=== PATIENT | male | born 1960 | race Caucasian/White ===

== ENCOUNTER 2016-09-24 11:47 | Inpatient (IN) | payer MEDICARE, MEDICAID ==
[~2016-09-24 11:47] MED LIST: ABILIFY10 MG; ABILIFY15 MG; ABILIFY15 MG PO; ABILIFY20 MG; ABILIFY30 MG; ABILIFY30 MG PO; ACETAMINOPHEN; ACETAMINOPHEN325 M2 PO; ACIDOPHILUS CAP1 TAB PO; ACIDOPHILUS1 CAP PO; ACIDOPHILUS1 EAC3 PO; ACIDOPHILUS1 EAC6 PO; ACTICOAT; ACTOS15 MG; ADULT ASPIRIN81 MG; ADULT LOW DOSE81 M1 PO; ADVAIR; ADVAIR 2501 DISK W/D; ADVAIR 2501 DISK W/D IH; ALAVERT10 MG; ALBUTEROL SULF8.5 GM IH; ALBUTEROL0.83 MG/ML INH; ALEVE220 MG PO; ALLER-CHLOR4 M1 PO; ALLERGY RELIEF10 M9 PO; AMBIEN CR12.5 MG/BO; AMBIEN10 M1 PO; AMBIEN10 MG; AMITRIPTYLINE H50 MG; AMOXICILLIN500 MG PO; ANBESOL MT; ANTACID500 MG; ANTIVERT25 MG; APAP; ARGIMENT POWDE1 EACH PO; ARTIFICIAL TEA1 EAC1 OP; ARTIFICIAL TEAR15 M OP; ARTIFICIAL TEAR15 M8 EACH EYE; ASACOL HD800 MG PO; ASACOL400 MG; ASACOL400 MG PO; ASPIR 8181 MG PO; ASPIR-LOW81 MG; ASPIRIN ENTERI325 MG PO; ASPIRIN325 MG PO; ASPIRIN81 M1 CH; AUGMENTIN 875-1 EAC2 PO; AUGMENTIN 875-11 TAB; AVODART0.5 MG; AYR SALINE NA14.1 GM; AZULFIDINE500 MG; AZULFIDINE500 MG PO; BABY ASPIRIN81 MG; BACLOFEN10 M1 PO; BACTRIM DS TABL1 TAB; BELSOMRA15 MG PO; BENEPROTEIN PO; BENTYL10 M1 PO; BENTYL10 MG PO; BENTYL20 M1 PO; BENTYL20 MG; BENTYL20 MG PO; BENZONATATE200 MG; BENZTROPINE MESY1 M1 PO; BIOTENE MOIST44.3 ML MM; BISAC-EVAC10 MG RC; BISAC-EVAC10 MG/SUPP RC; BISCOLAX10 MG RC; BOTTL PO; BROVANA15 MCG/22 INH; BUPROPION XL300 M1 PO; BUSPAR10 MG; BUSPAR15 MG; BUSPAR15 MG PO; BUSPAR30 MG PO; BUSPAR5 MG; BUSPIRONE HCL10 M2 PO; BUSPIRONE HCL30 MG PO; CAFFEINE; CALAN80 MG PO; CALCIUM 500 +1 EAC1 PO; CALCIUM 600 +1 EAC2 PO; CANASA1000 MG/SU RC; CARAFATE1 G PO; CARAFATE1 GM/10 M1 PO; CARDIZEM CD120 MG; CARDIZEM60 MG; CARVEDILOL12.5 M1 PO; CEFTRIAXON1000 MG/VI IM; CENTRUM SILVER1 TA; CERTAGEN1 TAB PO; CERTAVITE-ANTI1 EACH PO; CETIRIZINE HCL10 M1 PO; CHLORHEX GLU PO; CITRUCEL500 M1 PO; CLARITIN10 MG; CLONAZEPAM0.5 M1 PO; CLONAZEPAM0.5 MG; CLONAZEPAM0.5 MG PO; CLONAZEPAM1 M1 PO; CLONAZEPAM1 MG; CLONAZEPAM1 MG PO; CLONAZEPAM2 MG; COLACE100 MG PO; COLAZAL750 M1 PO; COMBIVENT INH14.7 GM; CPAP; CYCLOBENZAPRINE10 M1 PO; CYCLOBENZAPRINE10 MG PO; CYMBALTA60 MG PO; DEEP SEA45 M1; DEEP SEA45 M1 NS; DELZICOL; DELZICOL400 MG PO; DEMADEX20 MG PO; DEPAKOTE D250 MG/TA1 PO; DEPAKOTE ER250 M1 PO; DEPAKOTE ER250 MG; DEPAKOTE ER500 M1 PO; DEPAKOTE250 MG PO; DEPAKOTE500 MG; DESYREL100 MG/TAB PO; DESYREL150 MG PO; DETROL LA4 MG; DIAZEPAM5 M2 PO; DICYCLOMINE HCL20 MG; DICYCLOMINE HCL20 MG PO; DILACOR; DILTIAZEM ER120 MG; DITROPAN XL15 MG PO; DITROPAN XL5 M1 PO; DITROPAN5 M1 PO; DITROPAN5 MG; DITROPAN5 MG PO; DIVALPROEX SOD250 M3 PO; DIVALPROEX SOD500 M4 PO; DOCUSATE CALCI100 MG PO; DOCUSATE SODIU100 M2 PO; DOCUSATE SODIU100 MG PO; DONNATAL TABL16.2 MG; DUONEB 2.5-0.5 M3 ML IH; EFFEXOR XR150 MG; EFFEXOR XR150 MG PO; EFFEXOR XR37.5 MG PO; EFFEXOR XR75 M1 PO; EFFEXOR75 MG; EFFEXOR75 MG PO; ELESTAT5 ML OP; ENABLEX15 MG PO; ENABLEX7.5 MG PO; ENEMA READY-TO133 M1 PR; EQL FISH OIL 1,1 CA1 PO; ESKALITH CR450 MG PO; EXPECTORANT200 M1 PO; FANAPT10 MG PO; FANAPT4 MG PO; FIORICET1 TA1 PO; FISH OIL 1,0001 CA PO; FISH OIL 1,0001 CA1 PO; FLEXERIL10 MG PO; FLOMAX0.4 M1 PO; FLOMAX0.4 MG; FLOMAX0.4 MG PO; FLONASE ALLERG9.9 ML NS; FLONASE16 G1; FLONASE16 G2 NS; FLORINEF ACETA0.1 MG; FLUDRICORTISON0.1 MG PO; FLUDROCORTISON0.1 M1 PO; FLUDROCORTISON0.1 MG PO; FLUTICASONE P15.8 ML; FORADIL INH; FUROSEMIDE40 MG; FUROSEMIDE80 M2 PO; GABAPENTIN100 M1 PO; GABAPENTIN400 M3 PO; GABAPENTIN600 M2 PO; GEODON80 MG; GLIPIZIDE5 MG; GLIPIZIDE5 MG PO; GLUCAGEN1 MG/1 ML IM; GUAIFENESIN ER600 MG PO; GUAIFENESIN200 M3 PO; H; H PO; HALFPRIN162 MG; HUMALOG100 UNITS/ SC; HYDROCODON-ACE1 EA17 PO; HYDROCODON-ACE1 EAC7 PO; HYDROXYZINE HCL25 M1 PO; IMDUR30 MG PO; IMDUR60 MG; IMDUR60 MG PO; IMIPRAMINE HCL25 MG; IMIPRAMINE HCL50 MG; IMODIUM2 MG; INDERAL LA160 MG PO; INDERAL60 MG PO; INDERAL80 MG PO; INVEGA PO; INVEGA1.5 MG PO; INVEGA3 MG/BOTTL PO; INVEGA6 MG/BOTTL; INVEGA6 MG/BOTTL PO; IPRAT-ALBUT 0.5-3 ML INH; IPRATROPIU0.2 MG/1 M INH; IPRATROPIU0.2 MG/1 M NEB; IPRATROPIUM BRO15 ML NS; IRON325 M1 PO; ISORDIL30 MG PO; ISOSORBIDE DINI20 M1 PO; ISOSORBIDE DINI40 M1 PO; ISOSORBIDE MONO60 MG; JUVEN PACKET1 EACH PO; K-DUR20 ME1 PO; K-DUR20 MEQ; K-DUR20 MEQ PO; K-DUR20 MEQ/TA1 NG; KLONOPIN1 MG; KLONOPIN1 MG PO; KLONOPIN2 MG; KLONOPIN2 MG PO; KLOR-CON 1010 MEQ; KLOR-CON M20 MEQ/TAB PO; KLOR-CON M2020 MEQ; LABETALOL HCL100 MG PO; LAMICTAL ODT25 MG; LAMICTAL ODT50 MG; LAMICTAL150 MG PO; LAMICTAL200 MG; LAMICTAL200 MG PO; LAMICTAL25 MG; LAMOTRIGINE150 MG PO; LAMOTRIGINE200 MG PO; LASIX20 MG PO; LASIX40 M1 PO; LASIX40 MG; LASIX40 MG PO; LASIX80 MG PO; LATUDA40 MG PO; LATUDA80 MG PO; LEVAQUIN500 MG PO; LEVAQUIN750 M1 PO; LEVAQUIN750 MG; LEVBID0.375 MG; LEVEMIR FL100 UNIT/2 SC; LEVEMIR100 UNITS/ SC; LEVOTHROID150 MC1 PO; LEVOTHROID175 MCG; LEVOTHROID200 MCG PO; LEVOTHROID25 MCG PO; LEVOTHROID300 MCG; LEVOTHROID300 MCG PO; LEVOTHROID75 MCG; LEVOTHROID75 MCG PO; LEVOTHYROXINE PO; LEVOTHYROXINE137 MC1 PO; LEVOTHYROXINE200 MC4 PO; LEVOTHYROXINE200 MCG; LEVOTHYROXINE200 MCG PO; LEVOTHYROXINE300 MCG PO; LEVOTHYROXINE75 MC3 PO; LEVOXYL150 MCG; LEVOXYL300 MCG; LEXAPRO20 M1 PO; LIALDA1.2 G PO; LIALDA1.2 GM/TAB PO; LIDOCAINE; LIPITOR10 M1 PO; LISINOPRIL10 MG; LISINOPRIL2.5 MG; LISINOPRIL5 MG; LITHIUM CARBON300 M; LITHIUM CARBON300 MG; LITHIUM CARBON450 MG PO; LITHIUM CARBON600 MG; LOPERAMIDE2 M2 PO; LOPRESSOR25 MG/TA1 PO; LORATADINE10 MG; LORATADINE10 MG PO; LORATIDINE 10 MG; LOVENOX40 MG/0.4 SQ; LOW DOSE ASPIRI81 M3 PO; LUBRICANT EYE OP; LUNESTA3 MG; LUVOX CR150 MG; MAGOX400 MG PO; MECLIZINE HCL25 MG PO; MELATONIN3 MG PO; MELATONIN5 M1 PO; METAMUCIL1 PKT; METFORMIN HCL1000 M2 PO; METFORMIN HCL500; METOPROLOL TART25 MG PO; MILK OF MA400 MG/5 M; MILK OF MAGNESIA PO; MIRALAX12 EA; MIRALAX12 EA PO; MIRALAX17 GM PO; MIRTAZAPINE30 MG PO; MIRTAZAPINE45 M1 PO; MIRTAZAPINE45 MG PO; MOBIC15 MG PO; MULTI VITAMIN1 EAC2 PO; MULTIVITAMIN1 TAB PO; MUPIROCIN22 G2 TP; NASONEX17 GM NS; NEURONTIN100 M1 PO; NEURONTIN300 M1 PO; NEURONTIN300 MG; NICODERM C; NITROQUICK0.4 MG; NORCO 5/325 TAB1 TAB; NORCO 5/3251 TAB PO; NORCO 7.5/325 T1 TAB; NORVASC5 MG; O2; OMEPRAZOLE20 MG; OMEPRAZOLE40 M2 PO; OMNARIS12.5 GM NS; OMNICEF300 MG PO; ONDANSETRON HCL4 M2 PO; ONDANSETRON ODT4 M1 PO; ORGAN-I NR200 MG PO; OS CAL PO; OXCARBAZEPINE300 M1 PO; OXYBUTYNIN CHLO10 MG PO; OXYBUTYNIN CHLOR5 M2 PO; OXYBUTYNIN CHLOR5 MG; OXYGEN; OYSTER CALCIUM PO; PAMINE2.5 MG PO; PANTOPRAZOLE SO40 M3 PO; PANTOPRAZOLE SO40 MG PO; PERIDEX118 ML SSP; PHENASEPTIC177 ML MT; PHENERGAN25 M1 PO; PLAVIX75 MG; PLAVIX75 MG PO; POTASSIUM CHLO10 MEQ; POTASSIUM CHLO20 ME3 PO; PRAVACHOL40 MG PO; PREDNISONE10 M1 PO; PREDNISONE10 MG PO; PRILOSEC OTC20 MG; PRILOSEC40 MG PO; PROMETH-CODEIN 65 ML PO; PROMETHAZINE25 MG; PROMETHAZINE25 MG PO; PROPRANOLOL HCL60 M2 PO; PROTEIN POWDER; PROTONIX40 M1 PO; PROTONIX40 MG; PROTONIX40 MG PO; PROVENTIL HFA6.7 GM IH; PULMICORT0.5 MG/22 INH; Q TUSSIN PO; QUESTRAN PACK4 G/PKT PO; REGULOID POWDE; REMERON15 MG; REMERON30 MG; REMERON45 MG PO; REQUIP1 MG PO; REQUIP2 M1 PO; RESTASIS1 EACH OP; RESTASIS32 EA OP; RESTORIL15 MG; RESTORIL30 MG PO; RISPERDAL3 MG; ROBAFEN DM COU118 M1 PO; ROBAFEN100 MG/52 PO; ROPINIROLE HCL2 M2 PO; ROZEREM8 MG; RULOX SUSPENSI355 M2 PO; SAPHRIS10 M1 SL; SAPHRIS10 MG SL; SAVELLA25 MG PO; SAVELLA50 MG PO; SENNA S TABLET1 TAB; SENNA-S TABLET1 TAB; SENOKOT-S TABLE1 TAB; SEREVENT DISKU50 MCG INH; SEROQUEL X300 MG/TAB PO; SEROQUEL XR200 MG; SEROQUEL XR300 MG; SEROQUEL XR300 MG PO; SEROQUEL XR400 M1 PO; SEROQUEL XR400 M2 PO; SEROQUEL XR400 MG; SEROQUEL XR400 MG PO; SEROQUEL100 MG PO; SEROQUEL200 M2 PO; SEROQUEL200 MG; SEROQUEL25 MG; SEROQUEL300 MG; SEROQUEL300 MG PO; SEROQUEL400 MG PO; SEROQUEL50 MG; SEROQUEL50 MG PO; SIMVASTATIN10 MG PO; SINGULAIR10 MG; SONATA10 MG; SPIRIVA18 MCG IH; SUDOGEST PO; SULFADIAZINE500 MG; SULFASALAZINE500 MG; SULFASALAZINE500 MG PO; SYMBICORT 160-1 PUFF INH; SYNTHROID125 MCG PO; SYNTHROID150 MCG; SYSTANE 0.3-0.1 EACH OP; SYSTANE 0.3-0.4%1 EA OP; SYSTANE BALANCE10 M1 EACH EYE; SYSTANE BALANCE10 M1 OP; TAB-A-VITE W/IR1 TAB PO; TEMAZEPAM15 MG; TEMAZEPAM30 MG; TEMAZEPAM30 MG PO; TENORMIN50 MG; TETRACYCLINE PO; THERA M1 TAB; TOFRANIL50 MG; TOPAMAX100 MG; TOPROL XL25 MG; TOPROL XL25 MG PO; TOPROL XL50 MG; TYLENOL325 M1 PO; TYLENOL325 MG; TYLENOL325 MG PO; UNICOMPLEX-M1 TAB PO; VALIUM5 M1 PO; VANCOCIN HCL250 M1 PO; VANCOMYCIN HCL1 G1 IV; VENLAFAXINE HC150 M1 PO; VENLAFAXINE HC150 M3 PO; VENTOLIN HFA18 GM IH; VERAPAMIL HCL PO; VERAPAMIL HCL120 MG PO; VERAPAMIL HCL240 M PO; VERAPAMIL HCL80 MG; VERAPAMIL HCL80 MG PO; VERAPAMIL PO; VESICARE5 MG PO; VIBRYD; VIBRYD PO; VIIBRYD40 MG PO; VISTARIL50 MG; VITAMIN B-121000 MC2 PO; VITAMIN B121000 MCG PO; VITAMIN C PO; VITAMIN C500 M3 PO; VITAMIN D 22000 UNIT PO; VITAMIN D1000 UNI1 PO; VITAMIN D1000 UNIT PO; VYTORIN 10/40 T1 TAB; XYLOCAINE 1% IJ; ZETIA10 MG; ZINC SULFATE220 MG PO; ZINC30 MG PO; ZOCOR40 MG; ZOCOR40 MG PO; ZYPREXA20 M1 PO; ZYRTEC10 M1 PO; ZYRTEC10 MG PO; ZYRTEC1010 PO; [UNRECOGNIZED DRUG - OTHER]; [UNRECOGNIZED DRUG - OTHER]; [UNRECOGNIZED DRUG - OTHER]; [UNRECOGNIZED DRUG - OTHER]; [UNRECOGNIZED DRUG - OTHER]; [UNRECOGNIZED DRUG - OTHER]; [UNRECOGNIZED DRUG - OTHER] EACH EYE; [UNRECOGNIZED DRUG - OTHER] IJ; [UNRECOGNIZED DRUG - OTHER] IM; [UNRECOGNIZED DRUG - OTHER] PO; [UNRECOGNIZED DRUG - OTHER] PO; [UNRECOGNIZED DRUG - OTHER] PO; [UNRECOGNIZED DRUG - OTHER] PO; [UNRECOGNIZED DRUG - OTHER] PO; [UNRECOGNIZED DRUG - OTHER] PO
[2016-09-24] MEDS ORDERED: ACIDOPHILUS PR1 EAC1 PO (12:30)
[2016-09-24] MEDS ORDERED: ASPIRIN81 M1 PO (12:31)
[2016-09-24] MEDS ORDERED: LIPITOR10 M1 PO (12:31)
[2016-09-24] MEDS ORDERED: APRISO0.375 G1 PO (12:31)
[2016-09-24] MEDS ORDERED: BUSPIRONE HCL15 M2 PO (12:33)
[2016-09-24] MEDS ORDERED: ZITHROMAX250 M1 PO (12:33)
[2016-09-24] MEDS ORDERED: BACLOFEN10 M1 PO (12:33)
[2016-09-24] MEDS ORDERED: COREG12.5 M1 PO (12:34)
[2016-09-24] MEDS ORDERED: ZYRTEC10 M7 PO (12:34)
[2016-09-24] MEDS ORDERED: PERIDEX118 ML SSP (12:35)
[2016-09-24] MEDS ORDERED: CITRUCEL500 M1 PO (12:35)
[2016-09-24] MEDS ORDERED: DEEP SEA45 M1 (12:37)
[2016-09-24] MEDS ORDERED: VALIUM5 M1 PO (12:38)
[2016-09-24] MEDS ORDERED: VALIUM10 M1 PO (12:38)
[2016-09-24] MEDS ORDERED: DEPAKOTE ER500 M1 PO ×2 (12:39→13:08)
[2016-09-24] MEDS ORDERED: LASIX80 M1 PO (12:41)
[2016-09-24] MEDS ORDERED: NEURONTIN300 M1 PO (12:42)
[2016-09-24] MEDS ORDERED: GUAIFENESIN200 M3 PO (12:42)
[2016-09-24] MEDS ORDERED: ISOSORBIDE DINI20 M1 PO (12:43)
[2016-09-24] MEDS ORDERED: SYNTHROID0.2 MG/TAB PO (12:44)
[2016-09-24] MEDS ORDERED: SYNTHROID25 MC1 PO (12:44)
[2016-09-24] MEDS ORDERED: TRILEPTAL300 M2 PO (12:45)
[2016-09-24] MEDS ORDERED: ONCE DAILY1 EACH PO (12:45)
[2016-09-24] MEDS ORDERED: NASONEX17 G1 (12:45)
[2016-09-24] MEDS ORDERED: GLUCOPHAGE1000 M1 PO (12:45)
[2016-09-24] MEDS ORDERED: PROTONIX40 M2 PO (12:46)
[2016-09-24] MEDS ORDERED: SEROQUEL100 M2 PO (12:47)
[2016-09-24] MEDS ORDERED: POTASSIUM CHLO20 ME3 PO (12:47)
[2016-09-24] MEDS ORDERED: SEROQUEL400 M1 PO (12:48)
[2016-09-24] MEDS ORDERED: REFRESH LIQUIGE15 ML EACH EYE (12:49)
[2016-09-24] MEDS ORDERED: RESTORIL15 M1 PO (12:50)
[2016-09-24] MEDS ORDERED: EFFEXOR XR75 M1 PO (12:50)
[2016-09-24] MEDS ORDERED: CALAN80 M1 PO (12:51)
[2016-09-24] MEDS ORDERED: TYLENOL325 M2 PO (12:51)
[2016-09-24] MEDS ORDERED: ALBUTEROL2.5 MG/3 M INH (12:52)
[2016-09-24 12:53] LABS: URINE BILIRUBIN SMALL (NEG); URINE BLOOD LARGE (NEG); URINE GLUCOSE (UA) NEGATIVE (NEG); URINE KETONE MODERATE (NEG); URINE LEUKOCYTE ESTERASE POSITIVE (NEG); URINE NITRITE NEGATIVE (NEG); URINE PROTEIN MODERATE (NEG); URINE SPECIFIC GRAVITY 1.015 (1.003-1.030)
[2016-09-24] MEDS ORDERED: COLACE100 M1 PO (12:53)
[2016-09-24] MEDS ORDERED: BISCOLAX10 MG PR (12:53)
[2016-09-24 12:54] LABS: URINE APPEARANCE CLOUDY; URINE COLOR YELLOW; URINE OTHER VOLUME 3 ML
[2016-09-24] MEDS ORDERED: NEURONTIN100 M1 PO (12:54)
[2016-09-24 13:01] LABS: URINE BACTERIA 2+; URINE EPITHELIAL CELLS N /[HPF] (0-10); URINE WBC 80-100 /[HPF] (0-5)
[2016-09-24] MEDS ORDERED: CALMOSEPTINE OI71 G1 TOP (13:02)
[2016-09-24] MEDS ORDERED: IPRAT-ALBUT 0.5-3 ML INH (13:02)
[2016-09-24] MEDS ORDERED: MUPIROCIN22 G2 TOP (13:03)
[2016-09-24 13:36] LABS: HCT-HEMATOCRIT 32.4 % (36.0-53.5); HGB-HEMOGLOBIN 10.4 gm/dl (13.5-17.0); MCH (MEAN CORPUSCULAR HGB) 29.7 pg (28.0-32.0); MCHC MEAN CORPUSCULAR HGB CONC 32.1 % (32.0-36.0); MCV (MEAN CELL VOLUME) 92.6 fl (82.0-96.0); MEAN PLATELET VOLUME 10.7 cmc (9.4-12.4); NEUTROPHIL-AUTOMATED 3.3 tho/cmm (1.6-8.0); RED CELL DISTRIBUTION WIDTH 14.4 % (12.4-16.4); WHITE BLOOD COUNT 5.7 tho/cmm (4.0-10.0)
[2016-09-24 13:39] LABS: INR 1.4 INR (0.9-1.1); PROTHROMBIN TIME 15.9 SECONDS (9.0-13.6)
[2016-09-24 13:54] LABS: ALB/GLOB RATIO 0.7 (0.8-2.0); ALBUMIN 2.4 g/dl (3.5-5.0); ALKALINE PHOSPHATASE 41 U/L (33-138); ALT/SGPT 15 U/L (12-78); ANION GAP 14 mmol/L (0-20); BILIRUBIN,TOTAL 0.3 mg/dl (0.0-1.5); BLOOD UREA NITROGEN 18 mg/dl (6-24); CALCIUM 8.4 mg/dl (8.5-10.5); CARBON DIOXIDE-VENOUS 32 mmol/L (22-32); CHLORIDE 102 mmol/l (96-110); CREATININE 0.86 mg/dl (0.60-1.30); GLUCOSE 119 mg/dL (70-110); SODIUM 143 mmol/L (135-145); eGFR VALUE FOR BLACK >90 mL/Min
[2016-09-24 13:55] LABS: AST/SGOT 16 U/L (10-40); PLATELET COUNT 130 tho/cmm (150-450); POTASSIUM 4.6 mmol/L (3.7-5.1)
[2016-09-24 13:58] LABS: BAND % 21 % (0-20); BAND ABSOLUTE COUNT 1.2 tho/cmm (0-2.0); EOSINOPHIL % 1 % (0-7); WBC MORPHOLOGY DOHLE BODIES
[2016-09-24 17:02] LABS: ABG CO2 ARTERIAL 35 mmol/L (21-27); ARTERIAL BLD GAS O2 SATURATION 95 % (95-98); ARTERIAL BLOOD GAS PCO2 60 mmHg (32-45); ARTERIAL PO2 78 mmHg (70-100); BICARBONATE 33 mmol/L (21-28); BLOOD GAS BASE EXCESS 6 mM/L (-/+3); PH 7.36 Units (7.35-7.45)
[2016-09-25 07:24] LABS: BASO % 2.7 % (0-2); BASO ABSOLUTE COUNT 0.1 tho/cmm (0.0-0.2); EOSINOPHIL ABSOLUTE COUNT 0.1 tho/cmm (0.0-0.7); HCT-HEMATOCRIT 32.3 % (36.0-53.5); HGB-HEMOGLOBIN 10.1 gm/dl (13.5-17.0); IMMATURE GRANULOCYTES ABSOLUTE 0.21 tho/cmm (0-0.03); IMMATURE GRANULOCYTES PERCENT 4.8 % (0-0.3); LYMPH % 24.1 % (20-45); LYMPH ABSOLUTE COUNT 1.1 tho/cmm (0.8-4.5); MCH (MEAN CORPUSCULAR HGB) 28.9 pg (28.0-32.0); MCHC MEAN CORPUSCULAR HGB CONC 31.3 % (32.0-36.0); MCV (MEAN CELL VOLUME) 92.6 fl (82.0-96.0); MEAN PLATELET VOLUME 9.8 cmc (9.4-12.4); MONO % 15.5 % (0-12); MONOCYTE ABSOLUTE COUNT 0.7 tho/cmm (0.0-1.2); NEUTROPHIL ABSOLUTE COUNT 2.2 tho/cmm (1.6-8.0); NEUTROPHIL-AUTOMATED 2.2 tho/cmm (1.6-8.0); NEUTROPHILS % 49.9 % (40-80); PLATELET COUNT 115 tho/cmm (150-450); RED BLOOD COUNT 3.49 mil/cmm (4.40-5.70); WHITE BLOOD COUNT 4.4 tho/cmm (4.0-10.0)
[2016-09-25 08:04] LABS: ANION GAP 10 mmol/L (0-20); BLOOD UREA NITROGEN 14 mg/dl (6-24); CALCIUM 9.1 mg/dl (8.5-10.5); CARBON DIOXIDE-VENOUS 34 mmol/L (22-32); CHLORIDE 101 mmol/l (96-110); CREATININE 0.84 mg/dl (0.60-1.30); GLUCOSE 97 mg/dL (70-110); SODIUM 141 mmol/L (135-145); eGFR VALUE FOR BLACK >90 mL/Min
[2016-09-25 08:05] LABS: POTASSIUM 3.7 mmol/L (3.7-5.1)
[2016-09-26 05:50] LABS: HCT-HEMATOCRIT 31.9 % (36.0-53.5); HGB-HEMOGLOBIN 10.3 gm/dl (13.5-17.0); MCH (MEAN CORPUSCULAR HGB) 28.9 pg (28.0-32.0); MCHC MEAN CORPUSCULAR HGB CONC 32.3 % (32.0-36.0); MCV (MEAN CELL VOLUME) 89.6 fl (82.0-96.0); MEAN PLATELET VOLUME 9.9 cmc (9.4-12.4); NEUTROPHIL-AUTOMATED 2.1 tho/cmm (1.6-8.0); PLATELET COUNT 122 tho/cmm (150-450); RED BLOOD COUNT 3.56 mil/cmm (4.40-5.70); RED CELL DISTRIBUTION WIDTH 13.2 % (12.4-16.4); WHITE BLOOD COUNT 3.4 tho/cmm (4.0-10.0)
[2016-09-26 08:20] LABS: ABG CO2 ARTERIAL 32 mmol/L (21-27); ARTERIAL BLD GAS O2 SATURATION 92 % (95-98); ARTERIAL BLOOD GAS PCO2 52 mmHg (32-45); BICARBONATE 31 mmol/L (21-28); BLOOD GAS BASE EXCESS 5 mM/L (-/+3); PH 7.39 Units (7.35-7.45)
[2016-09-26 08:22] LABS: ARTERIAL PO2 66 mmHg (70-100)
[2016-09-26 12:12] LABS: BAND % 17 % (0-20); BAND ABSOLUTE COUNT 0.6 tho/cmm (0-2.0)
[2016-09-27 05:40] LABS: HGB-HEMOGLOBIN 10.2 gm/dl (13.5-17.0); PLATELET COUNT 110 tho/cmm (150-450)
[2016-09-28 06:24] LABS: CREATININE 0.85 mg/dl (0.60-1.30); eGFR VALUE FOR BLACK >90 mL/Min
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
[2016-09-29 04:01] LABS: HGB-HEMOGLOBIN 8.1 gm/dl (13.5-17.0); PLATELET COUNT 112 tho/cmm (150-450)
[2016-10-03 03:49] LABS: HGB-HEMOGLOBIN 8.7 gm/dl (13.5-17.0); MCH (MEAN CORPUSCULAR HGB) 29.2 pg (28.0-32.0); MCHC MEAN CORPUSCULAR HGB CONC 31.1 % (32.0-36.0); MEAN PLATELET VOLUME 9.8 cmc (9.4-12.4); NEUTROPHIL-AUTOMATED 4.5 tho/cmm (1.6-8.0); PLATELET COUNT 136 tho/cmm (150-450); RED BLOOD COUNT 2.98 mil/cmm (4.40-5.70); WHITE BLOOD COUNT 7.4 tho/cmm (4.0-10.0)
[2016-10-03 04:07] LABS: ANION GAP 11 mmol/L (0-20); BLOOD UREA NITROGEN 6 mg/dl (6-24); CALCIUM 7.9 mg/dl (8.5-10.5); CARBON DIOXIDE-VENOUS 37 mmol/L (22-32); CHLORIDE 100 mmol/l (96-110); CREATININE 0.71 mg/dl (0.60-1.30); GLUCOSE 179 mg/dL (70-110); MAGNESIUM 1.9 mg/dl (1.8-2.6); POTASSIUM 3.1 mmol/L (3.7-5.1); SODIUM 145 mmol/L (135-145); eGFR VALUE FOR BLACK >90 mL/Min
[2016-10-03 05:08] LABS: BAND % 18 % (0-20); BAND ABSOLUTE COUNT 1.3 tho/cmm (0-2.0); EOSINOPHIL % 2 % (0-7)
[2016-10-04 04:48] LABS: BASO % 0.8 % (0-2); BASO ABSOLUTE COUNT 0.1 tho/cmm (0.0-0.2); EOS % 3.3 % (0-7); EOSINOPHIL ABSOLUTE COUNT 0.2 tho/cmm (0.0-0.7); HCT-HEMATOCRIT 26.8 % (36.0-53.5); HGB-HEMOGLOBIN 8.3 gm/dl (13.5-17.0); IMMATURE GRANULOCYTES ABSOLUTE 0.63 tho/cmm (0-0.03); IMMATURE GRANULOCYTES PERCENT 9.8 % (0-0.3); LYMPH ABSOLUTE COUNT 1.3 tho/cmm (0.8-4.5); MCV (MEAN CELL VOLUME) 93.7 fl (82.0-96.0); MEAN PLATELET VOLUME 9.7 cmc (9.4-12.4); MONO % 11.1 % (0-12); MONOCYTE ABSOLUTE COUNT 0.7 tho/cmm (0.0-1.2); NEUTROPHIL ABSOLUTE COUNT 3.6 tho/cmm (1.6-8.0); NEUTROPHIL-AUTOMATED 3.6 tho/cmm (1.6-8.0); PLATELET COUNT 133 tho/cmm (150-450); RED BLOOD COUNT 2.86 mil/cmm (4.40-5.70); RED CELL DISTRIBUTION WIDTH 15.1 % (12.4-16.4); WHITE BLOOD COUNT 6.5 tho/cmm (4.0-10.0)
[2016-10-04 04:57] LABS: ANION GAP 10 mmol/L (0-20); BLOOD UREA NITROGEN 4 mg/dl (6-24); CALCIUM 7.8 mg/dl (8.5-10.5); CARBON DIOXIDE-VENOUS 36 mmol/L (22-32); CHLORIDE 102 mmol/l (96-110); CREATININE 0.62 mg/dl (0.60-1.30); GLUCOSE 152 mg/dL (70-110); MAGNESIUM 2.1 mg/dl (1.8-2.6); POTASSIUM 3.2 mmol/L (3.7-5.1); SODIUM 145 mmol/L (135-145); eGFR VALUE FOR BLACK >90 mL/Min
[2016-10-26] MEDS ORDERED: PROBIOTIC ACID1 EAC2 PO (14:22)
[2016-10-26] MEDS ORDERED: ASPIRIN81 M1 CH (14:23)
[2016-10-26] MEDS ORDERED: APRISO0.375 G1 PO (14:23)
[2016-10-26] MEDS ORDERED: BACLOFEN10 M1 PO (14:23)
[2016-10-26] MEDS ORDERED: LIPITOR10 M1 PO (14:23)
[2016-10-26] MEDS ORDERED: ZYRTEC10 M7 PO (14:24)
[2016-10-26] MEDS ORDERED: COREG12.5 M1 PO (14:24)
[2016-10-26] MEDS ORDERED: BUSPIRONE HCL15 M2 PO (14:24)
[2016-10-26] MEDS ORDERED: PERIDEX118 ML SSP (14:25)
[2016-10-26] MEDS ORDERED: CITRUCEL500 M1 PO (14:25)
[2016-10-26] MEDS ORDERED: VALIUM10 M1 PO (14:26)
[2016-10-26] MEDS ORDERED: DEEP SEA45 M1 (14:26)
[2016-10-26] MEDS ORDERED: DEPAKOTE ER500 M1 PO ×2 (14:27)
[2016-10-26] MEDS ORDERED: LASIX80 M1 PO (14:27)
[2016-10-26] MEDS ORDERED: NEURONTIN300 M1 PO (14:28)
[2016-10-26] MEDS ORDERED: GUAIFENESIN200 M3 PO (14:28)
[2016-10-26] MEDS ORDERED: IPRAT-ALBUT 0.5-3 ML INH (14:29)
[2016-10-26] MEDS ORDERED: ISOSORBIDE DINI20 M1 PO (14:29)
[2016-10-26] MEDS ORDERED: LEVOTHYROXINE200 MC4 PO (14:30)
[2016-10-26] MEDS ORDERED: GLUCOPHAGE1000 M1 PO (14:31)
[2016-10-26] MEDS ORDERED: PROTONIX40 M2 PO (14:32)
[2016-10-26] MEDS ORDERED: MULTI VITAMIN1 EAC2 PO (14:32)
[2016-10-26] MEDS ORDERED: NASONEX17 G1 (14:32)
[2016-10-26] MEDS ORDERED: TRILEPTAL300 M2 PO (14:32)
[2016-10-26] MEDS ORDERED: SEROQUEL100 M2 PO (14:33)
[2016-10-26] MEDS ORDERED: PENTASA500 MG/CAP PO (14:33)
[2016-10-26] MEDS ORDERED: POTASSIUM CHLO20 ME3 PO (14:33)
[2016-10-26] MEDS ORDERED: REFRESH PLUS1 EACH EACH EYE (14:34)
[2016-10-26] MEDS ORDERED: RESTORIL15 M1 PO (14:34)
[2016-10-26] MEDS ORDERED: SEROQUEL400 M1 PO (14:34)
[2016-10-26] MEDS ORDERED: VENLAFAXINE H37.5 M4 PO (14:35)
[2016-10-26] MEDS ORDERED: CALAN80 M1 PO (14:35)
[2016-11-23] MEDS ORDERED: POTASSIUM CHLO20 ME3 PO (14:41)
[2016-11-23] MEDS ORDERED: TRAZODONE HCL100 M1 PO (14:46)
[2016-11-23] MEDS ORDERED: REFRESH PLUS1 EACH EACH EYE (14:46)
[2016-11-23] MEDS ORDERED: APRISO0.375 G1 PO (14:52)
[2016-11-23] MEDS ORDERED: CITRUCEL500 M1 PO (14:54)
[2016-11-23] MEDS ORDERED: DEEP SEA45 M1 (14:55)
[2016-12-28] MEDS ORDERED: APRISO0.375 G1 PO (13:29)
== END 2016-10-04 16:20 | DRG 166 ==
LOC: EDMED 11:47 → EMR2 15:58 → PCUA 18:11
PROVIDERS: Emergency Medicine; Hospitalist; Internal Medicine Cardiovascular Disease; Internal Medicine Pulmonary Disease; ADMIT Internal Medicine
PROC: 05HC33Z Insertion of Infusion Device into Left Basilic Vein, Percutaneous Approach (ICD-10-PCS; principal; 2016-09-24)
PROC: 0B9G8ZX Drainage of Left Upper Lung Lobe, Via Natural or Artificial Opening Endoscopic, Diagnostic (ICD-10-PCS; 2016-09-24)
PROC: 3E1F88Z Irrigation of Respiratory Tract using Irrigating Substance, Via Natural or Artificial Opening Endoscopic (ICD-10-PCS; 2016-09-24)
PROC: 0BC78ZZ Extirpation of Matter from Left Main Bronchus, Via Natural or Artificial Opening Endoscopic (ICD-10-PCS; 2016-09-24)
PROC: 0BCB8ZZ Extirpation of Matter from Left Lower Lobe Bronchus, Via Natural or Artificial Opening Endoscopic (ICD-10-PCS; 2016-09-24)
PROC: 0BC88ZZ Extirpation of Matter from Left Upper Lobe Bronchus, Via Natural or Artificial Opening Endoscopic (ICD-10-PCS; 2016-09-24)
PROC: 0BBB8ZX Excision of Left Lower Lobe Bronchus, Via Natural or Artificial Opening Endoscopic, Diagnostic (ICD-10-PCS; 2016-09-24)
PROC: 0B9J8ZX Drainage of Left Lower Lung Lobe, Via Natural or Artificial Opening Endoscopic, Diagnostic (ICD-10-PCS; 2016-09-27)
DX: J69.0 Pneumonitis due to inhalation of food and vomit (principal); J96.22 Acute and chronic respiratory failure with hypercapnia; J96.21 Acute and chronic respiratory failure with hypoxia; Z99.81 Dependence on supplemental oxygen; Z51.5 Encounter for palliative care; N39.0 Urinary tract infection, site not specified; E66.2 Morbid (severe) obesity with alveolar hypoventilation; E11.9 Type 2 diabetes mellitus without complications; I10 Essential (primary) hypertension; B96.20 Unspecified Escherichia coli [E. coli] as the cause of diseases classified elsewhere; F31.89 Other bipolar disorder; J15.212 Pneumonia due to Methicillin resistant Staphylococcus aureus; I25.10 Atherosclerotic heart disease of native coronary artery without angina pectoris; J44.9 Chronic obstructive pulmonary disease, unspecified; F20.9 Schizophrenia, unspecified; F41.9 Anxiety disorder, unspecified; J02.9 Acute pharyngitis, unspecified; E78.5 Hyperlipidemia, unspecified; E03.9 Hypothyroidism, unspecified; Z87.891 Personal history of nicotine dependence; Z91.19 Patient's noncompliance with other medical treatment and regimen; Z95.5 Presence of coronary angioplasty implant and graft; Z79.4 Long term (current) use of insulin; Z89.512 Acquired absence of left leg below knee; Z68.35 Body mass index [BMI] 35.0-35.9, adult
CPT/HCPCS: C1751; J0295; J1650; J1815; J1956; J2250; J2543; J2930; J3010; J3370; J3475; J3480; J7030

== ENCOUNTER 2016-10-31 17:52 | Observation (INO) | payer MEDICARE, MEDICAID ==
[~2016-10-31 17:52] MED LIST changes: +ACIDOPHILUS PR1 EAC1 PO; +ALBUTEROL2.5 MG/3 M INH; +APRISO0.375 G1 PO; +ASPIRIN81 M1 PO; +BISCOLAX10 MG PR; +BUSPIRONE HCL15 M2 PO; +CALAN80 M1 PO; +CALMOSEPTINE OI71 G1 TOP; +COLACE100 M1 PO; +COREG12.5 M1 PO; +GLUCOPHAGE1000 M1 PO; +LASIX80 M1 PO; +MUPIROCIN22 G2 TOP; +NASONEX17 G1; +ONCE DAILY1 EACH PO; +PENTASA500 MG/CAP PO; +PROBIOTIC ACID1 EAC2 PO; +PROTONIX40 M2 PO; +REFRESH LIQUIGE15 ML EACH EYE; +REFRESH PLUS1 EACH EACH EYE; +RESTORIL15 M1 PO; +SEROQUEL100 M2 PO; +SEROQUEL400 M1 PO; +SYNTHROID0.2 MG/TAB PO; +SYNTHROID25 MC1 PO; +TRILEPTAL300 M2 PO; +TYLENOL325 M2 PO; +VALIUM10 M1 PO; +VENLAFAXINE H37.5 M4 PO; +ZITHROMAX250 M1 PO; +ZYRTEC10 M7 PO
[2016-10-31] MEDS ORDERED: PENTASA500 MG/CAP PO (19:33)
[2016-10-31 20:58] LABS: BASO % 0.5 % (0-2); EOS % 4.7 % (0-7); EOSINOPHIL ABSOLUTE COUNT 0.3 tho/cmm (0.0-0.7); HGB-HEMOGLOBIN 9.5 gm/dl (13.5-17.0); IMMATURE GRANULOCYTES ABSOLUTE 0.27 tho/cmm (0-0.03); IMMATURE GRANULOCYTES PERCENT 4.9 % (0-0.3); LYMPH % 20.8 % (20-45); LYMPH ABSOLUTE COUNT 1.2 tho/cmm (0.8-4.5); MCH (MEAN CORPUSCULAR HGB) 29.6 pg (28.0-32.0); MCHC MEAN CORPUSCULAR HGB CONC 30.6 % (32.0-36.0); MCV (MEAN CELL VOLUME) 96.6 fl (82.0-96.0); MEAN PLATELET VOLUME 9.6 cmc (9.4-12.4); MONO % 9.2 % (0-12); MONOCYTE ABSOLUTE COUNT 0.5 tho/cmm (0.0-1.2); NEUTROPHIL ABSOLUTE COUNT 3.3 tho/cmm (1.6-8.0); NEUTROPHIL-AUTOMATED 3.3 tho/cmm (1.6-8.0); NEUTROPHILS % 59.9 % (40-80); PLATELET COUNT 139 tho/cmm (150-450); RED BLOOD COUNT 3.21 mil/cmm (4.40-5.70); RED CELL DISTRIBUTION WIDTH 17.1 % (12.4-16.4); WHITE BLOOD COUNT 5.5 tho/cmm (4.0-10.0)
[2016-10-31 21:16] LABS: ALB/GLOB RATIO 0.7 (0.8-2.0); ALBUMIN 2.6 g/dl (3.5-5.0); ALKALINE PHOSPHATASE 45 U/L (33-138); ALT/SGPT 14 U/L (12-78); ANION GAP 11 mmol/L (0-20); AST/SGOT 10 U/L (10-40); BILIRUBIN,TOTAL 0.2 mg/dl (0.0-1.5); BLOOD UREA NITROGEN 10 mg/dl (6-24); CALCIUM 8.7 mg/dl (8.5-10.5); CARBON DIOXIDE-VENOUS 33 mmol/L (22-32); CHLORIDE 105 mmol/l (96-110); CREATININE 0.93 mg/dl (0.60-1.30); GLUCOSE 99 mg/dL (70-110); LIPASE 78 U/L (73-393); SODIUM 144 mmol/L (135-145); eGFR VALUE FOR BLACK >90 mL/Min
[2016-11-01 03:44] LABS: ANION GAP 10 mmol/L (0-20); BLOOD UREA NITROGEN 10 mg/dl (6-24); CALCIUM 8.2 mg/dl (8.5-10.5); CARBON DIOXIDE-VENOUS 32 mmol/L (22-32); CHLORIDE 106 mmol/l (96-110); GLUCOSE 120 mg/dL (70-110); SODIUM 143 mmol/L (135-145); eGFR VALUE FOR BLACK >90 mL/Min
[2016-11-01 03:45] LABS: POTASSIUM 5.4 mmol/L (3.7-5.1)
[2016-11-01] MEDS ORDERED: BUSPIRONE HCL15 M2 PO (11:47)
[2016-11-01] MEDS ORDERED: SYNTHROID25 MC1 PO (11:52)
[2016-11-01] MEDS ORDERED: VENLAFAXINE HCL75 M4 PO (11:55)
[2016-11-01] MEDS ORDERED: ACETAMINOPHEN325 M2 PO (11:57)
[2016-11-01] MEDS ORDERED: BISCOLAX10 MG PR (11:57)
[2016-11-01] MEDS ORDERED: COLACE100 M1 PO (11:58)
[2016-11-01] MEDS ORDERED: NEURONTIN100 M1 PO (11:58)
[2016-11-01] MEDS ORDERED: MILK OF MAGNESIA PO (12:03)
[2016-11-01] MEDS ORDERED: HYDROXYZINE HCL25 M1 PO (12:03)
[2016-11-01] MEDS ORDERED: ROBAFEN100 MG/52 PO (12:04)
[2016-11-01] MEDS ORDERED: IMODIUM A-D2 M4 PO (12:04)
[2016-11-01] MEDS ORDERED: ZOFRAN ODT4 MG PO (12:04)
[2016-11-01] MEDS ORDERED: PHENASEPTIC177 ML PO (12:04)
[2016-11-01] MEDS ORDERED: SUDOGEST PO (12:05)
[2016-11-01] MEDS ORDERED: RULOX SUSPENSI355 M2 PO (12:05)
[2016-11-01] MEDS ORDERED: CEPACOL SORE T1 EAC2 MM (12:05)
[2016-11-01] MEDS ORDERED: ROBAFEN-DM SYR118 ML PO (12:05)
[2016-11-01] MEDS ORDERED: BETADINE30 M1 TP (12:07)
[2016-11-01] MEDS ORDERED: ALBUTEROL2.5 MG/3 M INH (12:09)
[2016-11-01] MEDS ORDERED: IPRAT-ALBUT 0.5-3 ML INH (12:10)
[2016-11-01] MEDS ORDERED: EPSOM SALT454 G1 PO (12:10)
[2016-11-01] MEDS ORDERED: CALMOSEPTINE OI71 G1 TP (12:11)
[2016-11-01] MEDS ORDERED: CENTANY TP (12:12)
[2016-11-01 14:15] LABS: URINE BILIRUBIN NEGATIVE (NEG); URINE BLOOD LARGE (NEG); URINE GLUCOSE (UA) NEGATIVE (NEG); URINE KETONE NEGATIVE (NEG); URINE LEUKOCYTE ESTERASE POSITIVE (NEG); URINE NITRITE NEGATIVE (NEG); URINE PH 6.5 (5.0-8.0); URINE PROTEIN MODERATE (NEG)
[2016-11-01 14:18] LABS: URINE APPEARANCE HAZY; URINE COLOR PALE YELLOW
[2016-11-01 14:24] LABS: URINE WBC 60-70 /[HPF] (0-5)
[2016-11-01 14:25] LABS: URINE AMORPHOUS 1+; URINE BACTERIA 1+; URINE MUCUS 1+
[2016-11-23] MEDS ORDERED: POTASSIUM CHLO20 ME3 PO (14:41)
[2016-11-23] MEDS ORDERED: REFRESH PLUS1 EACH EACH EYE (14:46)
[2016-11-23] MEDS ORDERED: TRAZODONE HCL100 M1 PO (14:46)
[2016-11-23] MEDS ORDERED: APRISO0.375 G1 PO (14:52)
[2016-11-23] MEDS ORDERED: CITRUCEL500 M1 PO (14:54)
[2016-11-23] MEDS ORDERED: DEEP SEA45 M1 (14:55)
[2016-12-28] MEDS ORDERED: APRISO0.375 G1 PO (13:29)
== END 2016-11-01 14:00 ==
LOC: EDMED 17:52 → EMR2 22:56 → 5EB 11-01 01:20
PROVIDERS: Emergency Medicine; Family Medicine; ADMIT Internal Medicine
PROC: 05HF33Z Insertion of Infusion Device into Left Cephalic Vein, Percutaneous Approach (ICD-10-PCS; principal; 2016-10-31)
DX: R07.89 Other chest pain (principal); L97.429 Non-pressure chronic ulcer of left heel and midfoot with unspecified severity; E87.5 Hyperkalemia; I25.10 Atherosclerotic heart disease of native coronary artery without angina pectoris; F20.9 Schizophrenia, unspecified; F31.9 Bipolar disorder, unspecified; E11.9 Type 2 diabetes mellitus without complications; I10 Essential (primary) hypertension; G47.33 Obstructive sleep apnea (adult) (pediatric); E78.5 Hyperlipidemia, unspecified; J44.9 Chronic obstructive pulmonary disease, unspecified; R13.10 Dysphagia, unspecified; K21.9 Gastro-esophageal reflux disease without esophagitis; E03.9 Hypothyroidism, unspecified; J96.11 Chronic respiratory failure with hypoxia; J96.12 Chronic respiratory failure with hypercapnia; Z91.11 Patient's noncompliance with dietary regimen; Z79.84 Long term (current) use of oral hypoglycemic drugs; Z79.82 Long term (current) use of aspirin; Z79.899 Other long term (current) drug therapy; Z88.1 Allergy status to other antibiotic agents; Z88.5 Allergy status to narcotic agent; Z88.8 Allergy status to other drugs, medicaments and biological substances; Z87.891 Personal history of nicotine dependence; Z86.14 Personal history of Methicillin resistant Staphylococcus aureus infection; Z82.49 Family history of ischemic heart disease and other diseases of the circulatory system; Z89.511 Acquired absence of right leg below knee; Z95.5 Presence of coronary angioplasty implant and graft; Z98.890 Other specified postprocedural states
CPT/HCPCS: C1751; C8929; G0378; G8978-GP-CM; G8979-GP-CM; G8980-GP-CM; J2270; J7030; Q9967